=== PATIENT | female | born 1975 | race American Indian/Alaskan Native ===

== ENCOUNTER 2018-11-14 08:27 | Emergency (ER) | payer MEDICARE, MEDICAID ==
[2018-11-14 08:50] VITALS: RESP 18; O2SAT 100
[2018-11-14 09:44] LABS: BASO # 0.1 K/uL (0.0-0.2); BASO % 0.8 % (0.0-2.0); EOS # 0.3 K/uL (0.0-0.7); EOS % 3.5 % (0.0-4.0); HEMOGLOBIN 10.5 g/dL (11.0-16.0); LYMPH # 1.1 K/uL (1.0-4.3); LYMPH % 14.8 % (20.0-40.0); MEAN CELL VOLUME 100.6 fL (81.0-99.0); MEAN CORPUSCULAR HEMOGLOBIN 32.9 pg (27.0-31.0); MEAN CORPUSCULAR HGB CONC 32.7 g/dL (33.0-37.0); MEAN PLATELET VOLUME 7.7 fL (7.2-11.7); MONO # 0.7 K/uL (0.0-0.8); MONO % 9.7 % (0.0-10.0); NEUT # 5.4 K/uL (1.8-7.0); NEUT % 71.2 % (50.0-75.0); RBC 3.2 Mil/uL (3.80-5.20); RED CELL DISTRIBUTION WIDTH 18.2 % (11.5-14.5); WHITE BLOOD COUNT 7.6 K/uL (4.8-10.8)
--- NOTE | 2018-11-14 09:48 | C.PDOC ---
History Of Present Illness 43 y/o female brought to the ER complaining of left lateral rib pain radiating to the back which began today. Patient states that she has history of similar symptoms and she was evaluated for the symptoms several months ago. Patient states that the pain is worse with deep breathing and movement. She notes that she has history of ESRD and she missed her dialysis session because she was in pain. Denies having numbness, weakness, shortness of breath, fever,chills, rash, nausea, vomiting, and diarrhea. Time Seen by Provider: 11/14/18 08:45 Chief Complaint (Nursing): Abdominal Pain History Per: Patient History/Exam Limitations: no limitations Onset/Duration Of Symptoms: Hrs Current Symptoms Are (Timing): Still Present Severity: Moderate Radiation Of Pain To:: Back Quality Of Discomfort: Sharp Associated Symptoms: denies: Fever, Chills, Diarrhea, Loss Of Appetite, Chest Pain, Constipation, Urinary Symptoms Exacerbating Factors: None Alleviating Factors: None Recent travel outside of the [place]: No Past Medical History Reviewed: Historical Data, Nursing Documentation, Vital Signs Vital Signs: Last Vital Signs Temp 97.3 F L 11/14/18 08:43 Pulse 82 11/14/18 08:43 Resp 18 11/14/18 08:43 BP 107/63 11/14/18 08:43 Pulse Ox 100 11/14/18 08:43 Primary Care Provider: Darren Luna - Medical History PMH: Gastritis, Hypothyroidism, End Stage Renal Disease Other Surgeries: Hx of surgeries Family History: States: No Known Family Hx - Social History Hx Alcohol Use: Yes Hx Substance Use: No - Immunization History Hx Tetanus Toxoid Vaccination: Yes Hx Influenza Vaccination: Yes Hx Pneumococcal Vaccination: Yes Review Of Systems Except As Marked, All Systems Reviewed And Found Negative. Constitutional: Negative for: Fever, Chills Gastrointestinal: Positive for: Abdominal Pain. Negative for: Nausea, Vomiting, Diarrhea Genitourinary: Negative for: Dysuria, Hematuria Physical Exam - Physical Exam Appears: Non-toxic, No Acute Distress, Other (obese female) Skin: Normal Color, Warm, Dry, No Rash Head: Atraumatic, Normacephalic Eye(s): bilateral: Normal Inspection, PERRL, EOMI Nose: Normal Oral Mucosa: Moist Throat: No Erythema, No Exudate Neck: Normal ROM, Supple Chest: Symmetrical Cardiovascular: Rhythm Regular, No Friction Rub Respiratory: Normal Breath Sounds, No Rales, No Rhonchi, No Wheezing Back: Normal Inspection, No CVA Tenderness Extremity: Normal ROM, No Calf Tenderness, No Swelling, Other (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 Patient needs dialysis today. Spoke to case supervisor, who states that she will work to get the patient a dialysis appointment today. Labs are WNLs, vitals are stable and WNLs. On re- exam, the patient is resting comfortably. Lungs are CTA, heart is RRR, abdomen is soft, non-tender and tolerating PO well. Pt is ambulatory in the ED with steady gait. Disposition - Disposition Referrals: Geovany Moeller MD [Staff Provider] - Disposition: HOME/ ROUTINE Disposition Time: 14:01 Condition: STABLE Additional Instructions: Follow up with the medical doctor/clinic within 1-2 days. Return if worsened. Prescriptions: Acetaminophen [Tylenol] 325 mg PO Q6 PRN #30 tab PRN Reason: Pain, Mild (1-3) predniSONE [Prednisone] 20 mg PO BID #10 tab Instructions: Low Back Pain in Adults Forms: [facility] (Congolese) - Clinical Impression Clinical Impression: Back pain - PA / UNDERGRADUATE INTERN / Resident Statement MD/DO has reviewed & agrees with the documentation as recorded. - Scribe Statement The provider has reviewed the documentation as recorded by the Christine Walters Provider Attestation All medical record entries made by the Bradyibe were at my direction and personally dictated by me. I have reviewed the chart and agree that the record accurately reflects my personal performance of the history, physical exam, medical decision making, and the department course for this patient. I have also personally directed, reviewed, and agree with the discharge instructions and disposition.
[2018-11-14 10:22] LABS: ALB/GLOB RATIO 1.1 (1.0-2.1); ALBUMIN 4.2 g/dL (3.5-5.0)
[2018-11-14] MEDS ORDERED: Dexamethasone 4 mg/1 ml IVP STA (12:50)
[2018-11-14] MEDS ORDERED: Dexamethasone 4 mg/1 ml ONE (13:02)
[2018-11-14 14:11] VITALS: BP 117/60; PULSE 84; TEMP 98.2
== END 2018-11-14 14:24 | disposition home or self-care (01) ==
LOC: C.ER 08:27
DX: M54.9 Dorsalgia, unspecified (principal); N18.6 End stage renal disease; Z99.2 Dependence on renal dialysis
CPT/HCPCS: 80053; 83690; 85025; 96374; 96375; 99284; J1100; J1885; J2270